=== PATIENT | female | born 1940 | race Caucasian/White ===

== ENCOUNTER → 2017-12-14 11:37 | Outpatient (CLI) | payer MEDICARE, BC, SELFPAY ==
--- NOTE | 2017-12-14 09:30 | BRBX_PTH ---
PATIENT: PATRICK LUNA LOC: [facility] U#:[id number] AGE/SX: 85/F ROOM: RE12/14/[address]: Stefani Delgadillo PA-C : 1940 BED: DIS: SPEC #: [id number] RECD: 12/14/17 11:29 STATUS: KULWINDER DAMON #: [id number] JACEY: 12/14/17 09:[address]: Stefani Delgadillo DEPT: SURGICAL PATHOLOGY RECD BY: Amilcar Boyce ENTERED: 12/14/17 12:40 SP TYPE: BREAST BX OTHR DR: Dr. Fidel Myers MD Tissues: Left breast, NOS Procedures: Surgery Specimen Level IV HEADER OPERATION: Left breast aspiration PRE-OP DIAGNOSIS: Left breast seroma TISSUE SUBMITTED: Left breast tissue MICROSCOPIC DIAGNOSIS Left breast tissue, biopsy: Minute fragment of adipose tissue and blood clots mixed with acute inflammatory cells, clinically seroma. Negative for malignancy. SJ:molly 12/15/17 MICROSCOPIC DESCRIPTION Slides are reviewed. GROSS DESCRIPTION Received in fixative is one container labeled with the patient's name and designated left breast. The specimen consists of two pieces of olivera-pink soft tissue that in aggregate measure 1.2 x 1 x 0.2 cm. The specimen is totally submitted in one cassette. / NATALYA:molly 12/14/17 TC:5 CPT: 58193
--- NOTE | 2017-12-14 09:30 | FLU_PTH ---
PATIENT: PATRICK LUNA LOC: [facility] U#:[id number] AGE/SX: 85/F ROOM: RE12/14/[address]: Stefani Delgadillo PA-C : 1940 BED: DIS: SPEC #: [id number] RECD: 12/14/17 12:39 STATUS: KULWINDER DAMON #: [id number] JACEY: 12/14/17 09:[address]: Stefani Delgadillo DEPT: CYTOLOGY RECD BY: Amilcar Boyce ENTERED: 12/14/17 12:39 SP TYPE: Fluid OTHR DR: Dr. Fidel Myers MD Tissues: Left breast, NOS Procedures: Pap Stain (control) Special Stain Group II Surgery Specimen Level IV Cell Block Cytospin Fluid HEADER OPERATION: Left breast seroma PRE-OP DIAGNOSIS: Left breast seroma TISSUE SUBMITTED: Left breast seroma aspiration for cytology DIAGNOSIS CYTOLOGY Left breast, seroma aspiration (cytospin and cell block): Negative for malignant cells. See cytology study and comment. SJ:rg 12/15/17 COMMENT Please correlate with corresponding surgical specimen [id number]. CYTOLOGY STUDY Slides are reviewed. The specimen is bloody and consists of numerous neutrophils. CYTOLOGY GROSS Received is 6 ml of red cloudy fluid labeled with the patient's name and and designated per the requisition as left breast seroma aspiration. Submitted for cytology preparation including cell block. / RY:crys 12/14/17 TC:5 CPT: 20296, 23459
== END ==
PROVIDERS: Family Provider Family Medicine; PCP Family Medicine; Visit Provider Physician Assistant
DX: N64.89 Other specified disorders of breast (principal)
CPT/HCPCS: 88108; 88305; 88313

== ENCOUNTER 2018-03-25 05:38 | Day surgery (SDC) | payer MEDICARE, BC, SELFPAY ==
[2018-03-25 06:14] VITALS: BP 134/86; PULSE 78; RESP 16; O2SAT 98
--- NOTE | 2018-03-25 06:30 | COLBX_PTH ---
PATIENT: PATRICK LUNA LOC: [facility] U#:[id number] AGE/SX: 77/F ROOM: RE03/25/[address]: Dr. Robby Stewart MD : 1940 BED: DIS: 03/25/2018 SPEC #: [id number] RECD: 03/25/18 09:20 STATUS: KULWINDER DAMON #: [id number] JACEY: 03/25/18 06:[address]: Robby Stewart DEPT: SURGICAL PATHOLOGY RECD BY: Braxton Gonzales ENTERED: 03/25/18 10:09 SP TYPE: COLON BX OT DR: Dr. Fidel Myers MD Tissues: COLON BIOPSY Procedures: Trichrome (control) Special Stain Group II Surgery Specimen Level IV HEADER OPERATION: Colonoscopy PRE-OP DIAGNOSIS: Diarrhea TISSUE SUBMITTED: Random colonic biopsy MICROSCOPIC DIAGNOSIS Colon, random biopsy: Suggestive of collagenous colitis. AM:molly 03/26/18 COMMENT Trichrome stain with matched control reveals a focally thickened basal plate. MICROSCOPIC DESCRIPTION Slides are reviewed. GROSS DESCRIPTION Received in fixative is one container labeled with the patient's name and designated random colon biopsy. The specimen consists of multiple irregular fragments of light olivera soft tissue that in aggregate measure 1 x 0.5 x 0.1 cm. The specimen is totally submitted in one cassette. / AM:molly 03/25/18 TC:3 CPT: 90364, 41655
[2018-03-25 06:55] VITALS: BP 108/44; BP 121/59; BP 134/86; BP 166/79; BP 168/148; BP 83/58; BP 97/82; PULSE 72; RESP 14; TEMP 35.9; O2SAT 100; O2SAT 92; O2SAT 93; O2SAT 94; O2SAT 96
--- NOTE | 2018-03-25 06:55 | PCM.OPRPT ---
Problem List (1) Diarrhea Status: Acute Qualifiers: Report of Operation Date of Procedure: 03/25/18 Pre-Operative Diagnosis: Intractable diarrhea Post-Operative Diagnosis: Severe pancolonic diverticulosis with extensive diverticulosis of the descending and sigmoid colon Surgery/Procedure Performed:: Colonoscopy with random cold forcep biopsies Description of Surgical Findings:: Timeout informed consent was obtained. 77-year-old female was taken to the endoscopy suite. She was placed in the left lateral decubitus position. Throughout the procedure in aliquots received total 100 mg Demerol and 3 mg of Versed is intravenous sedation. Digital rectal exam performed. Slightly tight anal tone. Moderate hemorrhoidal changes. No mass lesions. Flexible colonoscope inserted the rectum advanced through a somewhat tortuous sigmoid colon. There was a very severe extensive diverticulosis of the sigmoid and descending colon. The scope could then be advanced in the transverse colon. Transabdominal pressure was required to get scope to go to the hepatic flexure. The patient was then placed supine and the scope then nicely advanced to the cecum. The cecum ileocecal valve area was nicely achieved. Bowel prep was quite good. The scope was carefully withdrawn from the cecum ascending colon transverse colon descending colon and sigmoid. Random cold forcep colonic biopsies were obtained. There is extensive diverticulosis even over on the right side of the colon and very very severe diverticulosis of the descending and sigmoid colon. I did not see any evidence of acute inflammation. The scope was retroflexed within the rectum anorectal verge inspected some mild hemorrhoidal changes. No mass lesions. Excess fluid and air was aspirated free the procedure was treated with patient tolerating it well. Impression Severe pancolonic diverticulosis with very severe diverticular disease of the descending and sigmoid colon. No evidence for acute inflammation currently. Random colonic biopsies pending. Next screening colonoscopy recommended in 10 years as the previous examination had been 2010. The patient will be notified of biopsy results as they become available. Cc: Dr. Fidel Myers and Dr.Lapman Floridalma Stewart M.D., F.A.C.S. Type of Anesthesia:: IV Sedation
[2018-03-25 07:00] VITALS: BP 134/86; BP 90/44; PULSE 67; RESP 14; O2SAT 92
[2018-03-25 07:05] VITALS: BP 119/57; BP 134/86; PULSE 83; RESP 14; O2SAT 96
[2018-03-25 07:07] VITALS: BP 102/48; BP 134/86; PULSE 71; RESP 14; TEMP 35.8; O2SAT 93
[2018-03-25 07:32] VITALS: BP 115/58; BP 134/86; PULSE 64; RESP 18; O2SAT 95
== END 2018-03-25 07:42 | disposition home or self-care (01) ==
LOC: EN 05:38 → AC 05:41
PROVIDERS: Family Provider Family Medicine; PCP Family Medicine; Visit Provider Surgery
PROC: 0DJD8ZZ Inspection of Lower Intestinal Tract, Via Natural or Artificial Opening Endoscopic (ICD-10-PCS; CPT 45378; principal; 2018-03-25 06:25)
DX: K52.831 Collagenous colitis (principal); K57.30 Diverticulosis of large intestine without perforation or abscess without bleeding; K56.2 Volvulus; K64.9 Unspecified hemorrhoids; I10 Essential (primary) hypertension; E78.5 Hyperlipidemia, unspecified; Z79.82 Long term (current) use of aspirin; Z79.899 Other long term (current) drug therapy; Z87.891 Personal history of nicotine dependence
CPT/HCPCS: 45380; 88305; 88313; 99152; 99153; J7120

== ENCOUNTER 2020-08-24 12:52 | Outpatient (RCR) | payer MEDICARE, BC, SELFPAY ==
[2018-03-18 09:19] VITALS: BMI 30.9
== END 2020-08-24 23:59 ==
LOC: IMMUN 12:52
PROVIDERS: PCP Family Medicine; Visit Provider Family Medicine
DX: Z23 Encounter for immunization (principal)
CPT/HCPCS: 0011A; 0012A; 91301

== ENCOUNTER 2023-12-08 16:19 | Observation (INO) | payer MEDICARE, BC, SELFPAY ==
[2023-12-08] VITALS (8 sets, daily range): BP systolic 139–212; BP diastolic 69–113; PULSE 73–91; RESP 12–18; TEMP 36.1–36.9; O2SAT 96–99; BMI 27.9
[2023-12-08 17:09] LABS: Absolute Lymphocyte Count 2.28 X10^3/uL (0.83-4.51); Absolute Neutrophil Count 4.1 X10^3/uL (2.0-7.7); Basophil# 0.07 X10^3/uL; Eosinophil# 0.23 X10^3/uL; Eosinophils% 3.2 % (0-5); Hematocrit 42.7 % (37-47); Hemoglobin 13.7 g/dL (12.0-15.0); Lymphocyte # 2.28 X10^3/ul (0.83-4.51); Lymphocyte % 31.5 % (19-41); Mean Corp Hgb Conc 32.1 g/dL (32-36); Mean Corpuscular Hgb 29.2 pg (27.0-32.0); Mean Platelet Vol. 9.4 fl (6.2-12.0); Monocyte# 0.53 X10^3/uL; Monocyte% 7.3 % (0-10); NRBC Flagged by Analyzer 0 % (0-5); Neutrophil # 4.08 X10^3/uL (2.7-7.7); Neutrophil % 56.3 % (47-70); Platelet Count 239 K/mm3 (150-450); RBC Distribution Width CV 13.2 % (11.6-14.6); RBC Distribution Width SD 43.3 fl (35.1-43.9); Red Blood Count 4.69 M/mm3 (4.2-5.4); White Blood Count 7.2 K/mm3 (4.4-11.0)
--- NOTE | 2023-12-08 17:10 | EDS_ITS ---
HPI History of Present Illness Chief Complaint: Palpitations Informant: patient and spouse/S.O. Onset/Context/Timing Onset: Weeks Activity at onset: gradual Timing: Continuous Narrative Narrative: 83-year-old female no cardiac history. History of prior breast cancer and hypertension. She has had palpitations continuously for a week. No chest pain. No shortness of breath. No leg swelling. She has felt more tired. She was seen today in her primary care physician's office and referred to the emergency department. Prior Similar Symptoms: No Recent Illness/Hospitalization: No PE Risk Factors: Negative for Recent Travel/Surgery, Recent Immobilization, Prior DVT or PE, Cancer or OCP + Smoking + >/=35 TAD Risk Factors: Negative for Marfan's Syndrome [facility] Medical History Diarrhea Breast cancer (~2016) Hyperlipidemia HTN (hypertension) Home Medications ?Medication ?Instructions ?Recorded ?Last Taken ?Type aspirin 81 mg chewable tablet 81 mg PO DAILY@0800 05/12/17 04/28/17 History calcium carbonate 500 mg-vitamin 1 ea PO DAILY 05/12/17 Unknown History D3 10 mcg (400 unit) chewable tablet losartan 100 mg tablet 100 mg PO DAILY 05/12/17 05/18/17 08:00 History multivitamin 1 ea PO DAILY 05/12/17 Unknown History pravastatin 20 mg tablet 20 mg PO QHS 05/12/17 Unknown History anastrozole 1 mg tablet (Arimidex) 1 mg PO ONCE 07/13/17 Unknown History budesonide 9 mg tablet,delayed and 9 mg PO DAILY collagenous colitis 03/30/18 Unknown Rx extended release #60 ea loperamide 2 mg tablet 2 mg PO Q1-4H PRN loose stool #30 03/30/18 Unknown Rx (Anti-Diarrheal (loperamide)) tabs balsalazide 750 mg capsule 2,250 mg (3 x 750 mg) PO TID #90 04/06/18 Unknown Rx caps Allergy/AdvReac Type Severity Reaction Status Date / Time MIL Inhibitors AdvReac cough Verified 12/08/23 16:21 adhesive tape (paper tape) AdvReac Other Verified 12/08/23 16:21 Surgical History History of lumpectomy of left breast (~2016) History of left breast biopsy H/O: hysterectomy History of laparoscopic cholecystectomy History of right breast biopsy History of colonoscopy (~2010) Social History Smoking Status: Former smoker ROS ROS ED ROS Narrative Palpitations. Fatigue. No chest pain. Review of Systems ROS Unobtainable: Denies due to encephalopathy Constitutional Constitutional ED: Denies chills or fever(s) Eyes Eyes: Reports none ENT ENT ED: Denies ear pain Cardiovascular Cardiovascular: Reports palpitations; Denies as per HPI or chest pain Respiratory/Chest Respiratory/Chest: Denies cough or dyspnea Gastrointestinal Gastrointestinal: Denies abdominal pain, constipation, diarrhea or melena Genitourinary Genitourinary ED: Denies dysuria or hematuria Musculoskeletal Musculoskeletal: Denies arthralgias or back pain Integumentary Denies abscess or Abrasions Neurologic Neurologic: Denies headache(s) or paresthesias Psychiatric Psychiatric: Denies anxiety or depression Endocrine Endocrinology: Denies cold intolerance, heat intolerance or polydipsia Hematologic/Lymphatic Hematologic/Lymphatic: Denies easy bleeding or easy bruising Allergic/Immunologic Allergic/Immunologic ED: Denies mouth swelling, tongue swelling or urticaria EXAM Physical Exam Narrative Exam Narrative: 83-year-old female no acute distress vital signs stable blood pressure is elevated to 06/26/2013. Patient has intermittent A-fib on the monitor heart rate between 90 and 120. Sugars sinus in A-fib back to sinus. H EENT exam unremarkable. Neck nontender. Lungs clear to auscultation bilaterally. Heart irregularly irregular and intermittent sinus. No murmur. Abdomen soft nontender. Moving all 4 extremities. Nontender no edema. Normal flag football coach strength. Normal dorsi plantarflexion. Patient is awake and alert. No focal motor deficits. Const Vital Signs: 12/08/23 16:19 12/08/23 16:45 12/08/23 16:45 Temperature 97 F L Temperature Source Temporal Pulse Rate 90 Respiratory Rate 18 Respiratory Effort Normal Respiratory Pattern Normal Blood Pressure 212/113 H Blood Pressure Mean 146 Pulse Ox 99 Oxygen Delivery Method Room Air Room Air 12/08/23 18:19 Temperature Temperature Source Pulse Rate 91 Respiratory Rate 18 Respiratory Effort Respiratory Pattern Blood Pressure 160/89 H Blood Pressure Mean 112 Pulse Ox 96 Oxygen Delivery Method Room Air Positive well nourished and well developed; Negative for obese, cachectic, contractures or unkempt General Appearance ED: well developed and NAD; Negative for unkempt, cachectic, contractures or pallor Nutritional Appearance: Negative for cachectic or obese HEENT Reports moist mucous membranes normocephalic and atraumatic; Negative for trauma or tenderness Eyes PERRL and EOMs intact bilaterally General Eye ED: Negative for pale conjunctiva or scleral icterus Neck no lymphadenopathy, supple and no JVD General: Negative for tenderness Chest Wall inspection of chest normal and palpation of chest normal Chest: Negative for tenderness Resp normal respiratory effort and clear to auscultation bilaterally Effort and Inspection: Negative for respiratory distress Auscultation: Negative for rales, rhonchi, wheezes or diminished lung sounds Cardio Rhythm: abnormal rhythm irregularly irregular Peripheral Pulses: pulses 2+ throughout GI normal to inspection, nondistended, normoactive bowel sounds, soft to palpation, non-tender, non-distended and no masses Back/Spine no CVA tenderness and no thoracic nor lumbar tenderness Extremity normal to inspection General Extremety ED: Negative for edema or tenderness General Extremity: Negative for edema Neuro oriented x3 and CN's II-XII intact bilaterally Sensorium / Orientation: awake, alert, oriented to person, oriented to place and oriented to time; Negative for confused, lethargic or stuporous Motor Exam: strength 5/5 throughout Psych mental status grossly normal Appearance: Negative for unkempt Mood & Affect: Negative for depressed, anxious or tearful Skin no rashes or lesions noted and no wounds General Skin Exam: Negative for jaundice or pallor Rashes: No rashes noted Trauma: Negative for abrasion, laceration or puncture MDM MDM MDM Narrative Medical decision making narrative: 83-year-old female with intermittent A-fib. New onset. Cardiac workup. Repeat exam at 6 PM patient doing well. Typically now she is more regular in a sinus rhythm but occasionally will go back into A-fib. I will speak to hospitalist about admission. I do not think she needs any medications at this time. History & Record Review Discussion w/independent historian: Patient and Family Lab Data Attestation: I reviewed the patient's lab results. Lab results narrative: CBC normal. White count of 7.2. H&H of 13 and 42. Platelets 239. Electrolytes normal gap 6. BUN of 20 creatinine 1.21. Glucose 135. Troponin 8. TSH 3.3. Labs: Laboratory Results - last 24 hr 12/08/23 16:54 WBC 7.2 RBC 4.69 Hgb 13.7 Hct 42.7 MCV 91.0 MCH 29.2 MCHC 32.1 RDW Std Deviation 43.3 RDW Coeff of Sharifa 13.2 Plt Count 239 MPV 9.4 Immature Gran % (Auto) 0.700 Neut % (Auto) 56.3 Lymph % (Auto) 31.5 [place] % (Auto) 7.3 Eos % (Auto) 3.2 Baso % (Auto) 1.0 Absolute Neuts (auto) 4.1 Absolute Lymphs (auto) 2.28 Nucleated RBC % 0 Sodium 138 Potassium 3.9 Chloride 107 Carbon Dioxide 25.0 Anion Gap 6 BUN 20 H Creatinine 1.21 H Estim Creat Clear Calc 34.06 Est GFR (MDRD) Af Amer 54 L Est GFR (MDRD) Non-Af 45 L BUN/Creatinine Ratio 16.5 Glucose 135 H Calcium 9.6 Troponin I High Sens 8 TSH 3.33 Radiography Chest X-Ray - ED: 1 View, Read by ED Physician, Read by Radiologist, Heart, Lungs, Mediastinum, Bony Structures, No Acute Disease and Chronic Changes Diagnostic Testing: Clinical Impression(s) from Imaging Studies Chest X-Ray 12/08/23 17:10 IMPRESSION: No acute radiographic abnormalities. Electronically Signed: Emanuel Liu MD at 17:39 EDT , Chest x-ray, portable, single view interpreted by myself and radiologist shows no acute abnormality. Normal cardiac silhouette. Normal lung [place]. Rhythm Strip Rhythm Strip: A-fib Rate: 103 EKG Initial EKG: Attestation: I personally reviewed and interpreted this EKG as follows: Interpretation: No Acute Injury Pattern and Atrial Fibrillation Comments: Patient is EKG showing paroxysmal A-fib shows sinus rhythm then a run of A-fib RVR then sinus rhythm. No acute signs of CT or ischemia. Discharge Plan Dx/Rx/DC Orders Clinical Impression: Atrial fibrillation, new onset, History of hypertension, History of hypothyroidism Disposition Disposition: Acute Care Hospital [facility]
--- NOTE | 2023-12-08 17:10 | RAD_ITS ---
INDICATION: chest pain EXAMINATION/TECHNIQUE: X-RAY - XR Chest 1 View COMPARISON: None. FINDINGS: The lungs are clear. Tortuous and calcified thoracic aorta. The heart is mildly enlarged. No pleural effusion or pneumothorax. Degenerative changes of the thoracic spine. RAD/Chest 1 View (Portable) IMPRESSION: No acute radiographic abnormalities. Electronically Signed: Emanuel Liu MD at 17:39 EDT ,
[2023-12-08 17:45] LABS: Anion Gap 6 (5-15); BUN 20 mg/dL (7-18); BUN/Creat Ratio 16.5 RATIO (10-20); Calcium,Total 9.6 mg/dL (8.5-10.1); Chloride 107 mmol/L (98-107); Creatinine, Serum 1.21 mg/dL (0.55-1.02); EST Glomerular Filtration Rate 45 mL/min (>60); Est Glom Filt Rate - Afr Amer 54 mL/min (>60); Estimated Creatinine Clearance 34.06 ml/min; Glucose 135 mg/dL (74-106); Potassium 3.9 mmol/L (3.5-5.1); Sodium Level 138 mmol/L (136-145); Thyroid Stim Hormone (TSH) 3.33 uIU/mL (0.358-3.74); Troponin-I HS 8 pg/mL (3.0-54.0)
--- NOTE | 2023-12-08 18:41 | HP.PCM.HOS_ITS ---
HPI - General General Date of Admission: 12/08/23 Date of Service: 12/08/23 Chief Complaint: Fatigue, malaise, sensation palpitations. 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 Workup in the ED included T97, heart rate 90, BP initially 212/113, respiratory rate 18, 99% on room air with most recent repeat vital signs heart rate 91, BP 160/89, respiratory rate 16, 96% on room air, CBC with WBC 7.2, hemoglobin 13.7, platelets 239 without marked shift, BMP with BUN/creatinine 20/1.21, GFR 45, glucose 135, troponin 8, TSH 3.33, chest x-ray with no acute cardiopulmonary findings, EKG with sinus tachycardia however repeat EKGs and telemetry while in the ED did note patient intermittently going into atrial fibrillation although rate was not significantly elevated. Patient was administered no medications in the ED. [facility] Medical History CKD (chronic kidney disease), stage III History of breast cancer Hypothyroidism Hyperlipidemia HTN (hypertension) Home Medications ?Medication ?Instructions ?Recorded ?Last Taken ?Type aspirin 81 mg chewable tablet 81 mg PO DAILY@0800 05/12/17 04/28/17 History losartan 100 mg tablet 100 mg PO DAILY 05/12/17 05/18/17 08:00 History multivitamin 1 ea PO DAILY 05/12/17 Unknown History pravastatin 20 mg tablet 20 mg PO QHS 05/12/17 Unknown History anastrozole 1 mg tablet (Arimidex) 1 mg PO ONCE 07/13/17 Unknown History calcium carbonate 600 mg-vitamin 1 tab PO DAILY 12/08/23 Unknown History D3 5 mcg (200 unit) tablet (Calcium 600 + D(3)) levothyroxine 50 mcg tablet 50 mcg PO DAILY 12/08/23 Unknown History naproxen 250 mg tablet 250 mg PO DAILY 12/08/23 Unknown History Allergy/AdvReac Type Severity Reaction Status Date / Time MIL Inhibitors AdvReac cough Verified 12/08/23 16:21 adhesive tape (paper tape) AdvReac Other Verified 12/08/23 16:21 Family History Mother Hypertension Father COPD (chronic obstructive pulmonary disease) Lung cancer Surgical History History of lumpectomy of left breast (~2016) History of left breast biopsy H/O: hysterectomy History of laparoscopic cholecystectomy History of right breast biopsy History of colonoscopy (~2010) Social History (Updated 12/08/23 @ 18:[address] Lilly Petty MD) household members: none Smoking Status: Former smoker how long ago did patient quit smoking: Quit ~ 40 yrs prior, smoked 1 ppd age 25 until quit. alcohol intake: never substance use type: does not use ROS ROS Narrative Admission Review of Systems: CONSTITUTIONAL: No weight loss, fever, chills, + weakness or fatigue. HEENT: Eyes: No visual loss, blurred vision, double vision or yellow sclerae. Ears, Nose, Throat: No hearing loss, sneezing, congestion, runny nose or sore throat. SKIN: No rash or itching, lesions, wounds. CARDIOVASCULAR: + Palpitations, racing heart. No chest pain, chest pressure or chest discomfort, edema, orthopnea, syncopal events. RESPIRATORY: No shortness of breath, cough or sputum, wheezing, hemoptysis. GASTROINTESTINAL: No anorexia, nausea, vomiting or diarrhea, abdominal pain, melena, BRBPR. GENITOURINARY: + Sensation increased urinary frequency. No dysuria, urgency or retention. NEUROLOGICAL: No headache, dizziness, syncope, paralysis, ataxia, numbness or tingling in the extremities, focal weakness, change in bowel or bladder control, seizure. MUSCULOSKELETAL: + muscle, back pain, joint pain or stiffness. HEMATOLOGIC: No anemia. Easy bleeding/bruising. LYMPHATICS: No enlarged nodes. No history of splenectomy. PSYCHIATRIC: No history of depression or anxiety. ENDOCRINOLOGIC: No reports of sweating, cold or heat intolerance. No polyuria or polydipsia. ALLERGIES: No history of asthma, hives, eczema or rhinitis. Vital Signs Vital Signs Vital Signs: 12/08/23 16:19 12/08/23 16:45 12/08/23 16:45 Temperature 97 F L Temperature Source Temporal Pulse Rate 90 Respiratory Rate 18 Respiratory Effort Normal Respiratory Pattern Normal Blood Pressure 212/113 H Blood Pressure Mean 146 Pulse Ox 99 Oxygen Delivery Method Room Air Room Air 12/08/23 17:30 12/08/23 18:19 Temperature 98.4 F Temperature Source Pulse Rate 88 91 Respiratory Rate 16 18 Respiratory Effort Respiratory Pattern Blood Pressure 155/88 H 160/89 H Blood Pressure Mean 110 112 Pulse Ox 96 96 Oxygen Delivery Method Room Air Weight Weight: 162 lb 11.218 oz Body Mass Index (BMI) 27.9 Physical Exam Narrative Physical Examination: General: Awake, alert, oriented x 3 and cooperative, seated upright in the ED bed, no current symptoms, on monitor currently in sinus rhythm. Skin: Normal color, normal turgor, no icterus, no cyanosis except occasional staged ecchymoses. HEENT: AT/NC, EOMI, PERRLA, MMM, no carotid bruits or JVD noted. Lungs: Mildly diminished, greater bases, appropriate effort, no rales, ronchi or wheezing. Heart: Currently regular rate and rhythm; no gallop, rub audible. Abdomen: Soft, overweight, NTTP, ND, mildly hyperactive BS, no appreciated HSM. Extremities: No cyanosis, clubbing, or edema. Neurological: Patient awake, alert, oriented as noted, cognitive function intact; pupils equally reactive to light and accommodation, cranial nerves grossly normal, moving all 4 extremities, no focal deficits, strength mildly globally decreased. Psychiatric: Affect appears fatigued otherwise normal, no acute evidence of depressive or anxiety feelings. Results Lab / Micro Data 12/08/23 16:54 12/08/23 16:54 Labs: Laboratory Results - last 24 hr 12/08/23 16:54: WBC 7.2, RBC 4.69, Hgb 13.7, Hct 42.7, MCV 91.0, MCH 29.2, MCHC 32.1, RDW Std Deviation 43.3, RDW Coeff of Sharifa 13.2, Plt Count 239, MPV 9.4, Immature Gran % (Auto) 0.700, Neut % (Auto) 56.3, Lymph % (Auto) 31.5, [place] % (Auto) 7.3, Eos % (Auto) 3.2, Baso % (Auto) 1.0, Absolute Neuts (auto) 4.1, Absolute Lymphs (auto) 2.28, Nucleated RBC % 0, Sodium 138, Potassium 3.9, Chloride 107, Carbon Dioxide 25.0, Anion Gap 6, BUN 20 H, Creatinine 1.21 H, Estim Creat Clear Calc 34.06, Est GFR (MDRD) Af Amer 54 L, Est GFR (MDRD) Non-Af 45 L, BUN/Creatinine Ratio 16.5, Glucose 135 H, Calcium 9.6, Troponin I High Sens 8, TSH 3.33 Rhythm Strip Rhythm Strip: A-fib Rate: 103 Imaging Radiology Impression Chest X-Ray 12/08/23 17:10 IMPRESSION: No acute radiographic abnormalities. 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 #1. Symptomatic Paroxsymal atrial fibrillation: Patient with intermittent atrial fibrillation noted in the ED on telemetry monitoring. Will admit to PCU, maintain on telemetry, obtain cardiac enzyme serial set, obtain magnesium level, obtain ECHO, TSH level in the ED 3.33 however will obtain free T4 and T3 is recently started levothyroxine. Will initiate low-dose beta-luciana therapy and may further adjust or alter as needed pending response. Will initiate Eliquis therapy given stroke risk as discussed with patient and family. #2. Hypertension: Continue home regimen including losartan, adding beta-luciana low-dose as noted above with further adjustment pending response, PRN hydralazine. #3. Chronic Kidney Disease Stage III, unclear subtype: Admission BUN/Cr 20/1.21, GFR 45, baseline renal function not noted recently is the most noted function 05/08/2017 with creatinine 0.97 with GFR at that time 59, repeat BMP in AM. #4. Hypothyroidism: Continue home synthroid regimen, TSH 3.33 but given presentation symptoms we will also obtain free T4 and T3 to be cautious. #5. History of breast cancer: Patient with history of left-sided breast cancer of unclear type status postlumpectomy and radiation therapy x 1, considered in remission, will continue anastrozole regimen, encourage continued outpatient follow-up as previously arranged with oncology. #6. Hyperlipidemia: We will continue patient on statin therapy. #7. DVT prophylaxis: Initiating Eliquis therapy as noted. #8. CODE status: Patient ANISHA is her son and daughter and living will is currently in place. Discussed CODE status at length including difference between FULL code, DNR-CCA and DNR-CC status. Following discussions about the differences in these status, requested DNR-CCA, no intubation status. Advanced Care Planning Face to Face Time: 16 minutes. Charges/Coding Visit Charges Inpatient E&M: 85151 Init Hosp L2 Procedures Hospitalists Procedures: 56796 Advncd Care Plan 30 Min
--- NOTE | 2023-12-08 20:40 | ECHOD_ITS ---
Reason For Study: AFIB/FLUTTER Procedure This was a 2D Doppler, Color Flow transthoracic echocardiogram. The study was technically difficult. Due to arrhythmia. Exam performed portable in patient room. Left Ventricle Normal size and thickness. The left ventricular ejection fraction is 60 %. Normal diastology for age. Right Ventricle Normal right ventricle. Atria The left atrium is mildly enlarged. Normal right atrium. Mitral Valve Trivial mitral valve insufficiency. Tricuspid Valve Trivial tricuspid valve insufficiency. Normal pulmonary artery pressure. Aortic Valve Trisinus/trileaflet aortic valve. Mild (1+) aortic valve insufficiency. Pulmonic Valve The pulmonic valve is not well visualized. Great Vessels Normal sized aortic root. Pericardium/Pleural No pericardial effusion. MMode/2D Measurements & Calculations LVIDd: 4.1 cm IVSd: 0.86 cm Ao root diam: 3.0 cm LVIDs: 3.0 cm LVPWd: 0.89 cm RVDd: 2.7 cm FS: 26.9 % LAV(MOD-bp): 41.4 ml LVAd ap4: 18.0 cm2 SV(MOD-sp4): 27.0 ml LAV(MOD-bp) Indexed: 23.1 ml/m2 LVLd ap4: 6.6 cm LAV(MOD-sp2): 40.0 ml EDV(MOD-sp4): 41.3 ml LAV(MOD-sp4): 40.0 ml EDV(sp4-el): 41.6 ml LVAs ap4: 9.6 cm2 LVLs ap4: 5.9 cm ESV(MOD-sp4): 14.3 ml ESV(sp4-el): 13.3 ml EF(MOD-sp4): 65.5 % EF(sp4-el): 68.0 % SV(sp4-el): 28.3 ml LA A4 area: 15.3 cm2 LA dimension(2D): 4.2 cm RA A4 area: 11.7 cm2 Time Measurements MV dec time: 0.19 sec Doppler Measurements & Calculations MV E max hema: 75.6 cm/sec Lat Peak E' Hema: 7.8 cm/sec Med Peak E' Hema: 7.5 cm/sec MV A max hema: 100.3 cm/sec E/E' lat: 9.7 E/E' med: 10.1 MV E/A: 0.75 MV V2 max: 100.4 cm/sec Ao V2 max: 148.9 cm/sec AI max hema: 447.3 cm/sec MV max P.0 mmHg Ao max P.9 mmHg AI max P.1 mmHg MV V2 mean: 48.8 cm/sec Ao V2 mean: 88.1 cm/sec MV mean P.2 mmHg Ao mean P.7 mmHg AI dec slope: 281.6 cm/sec2 MV V2 VTI: 23.7 cm Ao V2 VTI: 27.2 cm AI P1/2t: 465.2 msec AV (velocity ratio): 0.76 LV V1 max: 96.9 cm/sec TR max hema: 259.7 cm/sec LV V1 max P.8 mmHg TR max P.0 mmHg LV V1 mean P.8 mmHg LV V1 mean: 61.3 cm/sec LV V1 VTI: 20.6 cm ECHO/Echo Complete Interpretation Summary The left ventricular ejection fraction is 60 %. The left atrium is mildly enlarged. Mild (1+) aortic valve insufficiency. Ordering Physician: Lilly Petty Referring Physician: Fidel Myers Performed By: Susan Wood RDCS, RVT
[2023-12-08] MEDS: Metoprolol Tartrate 25 MG Tablet 12.5 MG PO (22:44)
[2023-12-08] MEDS: APIXABAN 5 MG TABLET PO (22:45)
[2023-12-08 23:04] LABS: Bacteria 0 SEEN /hpf (None Seen); Mucous, Urine 0 SEEN /hpf (<or=2+)
[2023-12-08 23:07] LABS: Color, Urine Yellow (Yellow); Glucose, Dipstick Normal (Normal); Ketone-Dipstick Negative (Negative); Leukocyte Esterase-Dipstick 100 /ul (Negative); Nitrite-Dipstick Negative (Negative); Occult Blood-Urine 150 /ul (Negative); Protein-Dipstick Negative (Negative); Urine Bilirubin Dipstick Negative (Negative); Urine Clarity Clear (Clear); Urine Urobilinogen Normal (Normal)
[2023-12-08 23:14] LABS: Red Blood Cells-Urine 5-10 SEEN /hpf (0-5); Squamous Epithelial Cells - UA 0-5 SEEN /hpf (5-10); White Blood Cells 0-5 SEEN /hpf (0-5)
[2023-12-09 00:41] LABS: Troponin-I HS 81 pg/mL (3.0-54.0)
[2023-12-09 02:41] VITALS: BP 139/68; PULSE 70; RESP 16; TEMP 36.3; O2SAT 98
[2023-12-09 03:59] LABS: Absolute Lymphocyte Count 2.43 X10^3/uL (0.83-4.51); Absolute Neutrophil Count 3.9 X10^3/uL (2.0-7.7); Basophil# 0.06 X10^3/uL; Basophil% 0.8 % (0-1); Eosinophil# 0.22 X10^3/uL; Eosinophils% 3.1 % (0-5); Hematocrit 37.4 % (37-47); Lymphocyte # 2.43 X10^3/ul (0.83-4.51); Lymphocyte % 33.9 % (19-41); Mean Corp Hgb Conc 32.1 g/dL (32-36); Mean Corpuscular Hgb 29.3 pg (27.0-32.0); Mean Corpuscular Volume 91.4 fL (81-99); Mean Platelet Vol. 9.4 fl (6.2-12.0); Monocyte# 0.51 X10^3/uL; Monocyte% 7.1 % (0-10); NRBC Flagged by Analyzer 0 % (0-5); Neutrophil # 3.91 X10^3/uL (2.7-7.7); Neutrophil % 54.7 % (47-70); Platelet Count 196 K/mm3 (150-450); Red Blood Count 4.09 M/mm3 (4.2-5.4); White Blood Count 7.2 K/mm3 (4.4-11.0)
[2023-12-09 04:17] LABS: Troponin-I HS 75 pg/mL (3.0-54.0)
[2023-12-09] MEDS: Levothyroxine 50 MCG Tablet PO (05:34)
[2023-12-09 06:00] VITALS: BMI 27.4
[2023-12-09 06:19] LABS: ALB/GLOB Ratio 1.2 RATIO (0.9-2.4); AST(SGOT) 18 U/L (15-37); Alanine Aminotransfer ALT/SGPT 16 U/L (13-56); Albumin, Serum 3.5 g/dL (3.2-5.0); Alkaline Phosphatase 63 U/L (45-117); Anion Gap 6 (5-15); BUN 18 mg/dL (7-18); BUN/Creat Ratio 17.8 RATIO (10-20); Calcium,Total 8.8 mg/dL (8.5-10.1); Chloride 110 mmol/L (98-107); Creatinine, Serum 1.01 mg/dL (0.55-1.02); EST Glomerular Filtration Rate 55 mL/min (>60); Est Glom Filt Rate - Afr Amer 67 mL/min (>60); Estimated Creatinine Clearance 40.49 ml/min; Free T3 1.9 pg/mL (2.18-3.98); Globulin 2.9 g/dL (2.2-4.2); Glucose 101 mg/dL (74-106); Potassium 3.8 mmol/L (3.5-5.1); Protein, Total 6.4 g/dL (6.4-8.2); Sodium Level 141 mmol/L (136-145); T4 Free Direct 1.18 ng/dL (0.76-1.46)
[2023-12-09 08:41] VITALS: BP 134/63; PULSE 73; RESP 14; TEMP 36.6; O2SAT 97
[2023-12-09] MEDS: APIXABAN 5 MG TABLET PO (10:23)
[2023-12-09] MEDS: Losartan Potassium 100 MG Tablet PO (10:23)
[2023-12-09 10:24] VITALS: BP 138/68; PULSE 78
[2023-12-09] MEDS: Metoprolol Tartrate 25 MG Tablet 12.5 MG PO (10:24)
[2023-12-09] MEDS: 0.9% Saline Lock 10 ML Syringe IV (10:26)
[2023-12-09 14:41] VITALS: BP 136/74; PULSE 76; RESP 16; TEMP 36.8; O2SAT 99
--- NOTE | 2023-12-09 14:56 | DS.PCM_ITS ---
Providers Date of Admission: 12/08/23 Date of Discharge: 12/09/23 Primary Care Physician: Dr. Fidel Myers MD Reason For Visit: PAF Diagnosis Discharge Diagnosis (1) Atrial fibrillation, new onset: Status: Acute Code(s): I48.91 - Unspecified atrial fibrillation Medications at Discharge Home Medications aspirin 81 mg chewable tablet 81 mg PO DAILY@0800 heart health 05/12/17 losartan 100 mg tablet 100 mg PO DAILY blood pressure 05/12/17 multivitamin 1 ea PO DAILY vitamin 05/12/17 pravastatin 20 mg tablet 20 mg PO QHS cholesterol 05/12/17 calcium carbonate 600 mg-vitamin D3 5 mcg (200 unit) tablet (Calcium 600 + D(3)) 1 tab PO DAILY supplement 12/08/23 levothyroxine 50 mcg tablet 50 mcg PO DAILY thyroid 12/08/23 apixaban 5 mg tablet (Eliquis) 5 mg PO BID #60 tabs 12/09/23 metoprolol tartrate 25 mg tablet 12.5 mg (1/2 x 25 mg) PO BID #30 tabs 12/09/23 Hospital Course Operations None Procedures 2-D Echocardiogram Summary of Care Provided Minutes Spent on Discharge: 55 Hospital Course: Patient is an 83-year-old female with a past medical history as outlined was admitted through the ED on 12/08/2023 with a complaint of intermittent palpitations and fatigue and malaise. She denied any shortness of breath or chest pain. She had recently been placed on Synthroid for hypothyroidism and the dose was increased to 50 mcg daily recently also. On admission blood pressure was markedly elevated at 212/113. Labs were otherwise unremarkable. TSH was 3.33. Chest x-ray showed no acute cardiopulmonary process and EKG shows sinus tachycardia though subsequently she did go into intermittent A-fib. She was admitted and managed for new onset A-fib. She was placed on p.o. metoprolol as well as Eliquis. She had 2D echo which showed EF of 60%with mildly enlarged left atrium and mild aortic valve insufficiency. She remained rate controlled and her palpitations did not recur during admission. She remained stable and was discharge home on 12/09/2023. She was discharged on PO metoprolol and PO eliquis. She is to follow up with her PCP and was referred to cardiology to establish care for her afib. Patient seen and examined. She had no active complaints and felt well. She had an uneventful night. Review of systems is otherwise negative. Labs and vital reviewed. Home meds reviewed and reconciled. Physical Exam Const alert, oriented x3 and no apparent distress General Appearance: cooperative and comfortable Orientation / Consciousness: awake Exam Limitations: no limitations HEENT normocephalic, head/scalp atraumatic, hearing grossly normal bilaterally, moist oral mucous membranes and oropharynx normal Mouth: oral and palatal mucosa normal Eyes PERRL, EOMs intact bilaterally and conjunctivae normal Neck no lymphadenopathy and supple Resp normal respiratory effort, no retractions, no use of accessory muscles and clear to auscultation bilaterally Cardio S1 normal heart sound, S2 normal heart sound and no murmurs Cardio Narrative: afib, rate controlled. GI normal to inspection, nondistended, normoactive bowel sounds, soft to palpation, non-tender and non-distended Extremity normal to inspection, full ROM and no clubbing, cyanosis or edema Skin no rashes or lesions noted and no wounds Neuro oriented x3, CN's II-XII intact bilaterally, moves all extremities and no focal motor deficits Sensorium / Orientation: awake and alert Motor Exam: strength 5/5 throughout Psych affect normal Weight / BMI Weight Weight: 160 lb 0.889 oz Body Mass Index (BMI) 27.4 ABG / Lab / Microbiology Data 12/09/23 03:34 12/09/23 03:34 Laboratory: Laboratory Results - last 24 hr 12/08/23 16:54: WBC 7.2, RBC 4.69, Hgb 13.7, Hct 42.7, MCV 91.0, MCH 29.2, MCHC 32.1, RDW Std Deviation 43.3, RDW Coeff of Sharifa 13.2, Plt Count 239, MPV 9.4, Immature Gran % (Auto) 0.700, Neut % (Auto) 56.3, Lymph % (Auto) 31.5, [place] % (Auto) 7.3, Eos % (Auto) 3.2, Baso % (Auto) 1.0, Absolute Neuts (auto) 4.1, Absolute Lymphs (auto) 2.28, Nucleated RBC % 0, Sodium 138, Potassium 3.9, Chloride 107, Carbon Dioxide 25.0, Anion Gap 6, BUN 20 H, Creatinine 1.21 H, Estim Creat Clear Calc 34.06, Est GFR (MDRD) Af Amer 54 L, Est GFR (MDRD) Non-Af 45 L, BUN/Creatinine Ratio 16.5, Glucose 135 H, Calcium 9.6, Magnesium 2.0, Troponin I High Sens 8, TSH 3.33 12/08/23 22:55: Urine Color Yellow, Urine Clarity Clear, Urine pH 7.0, Ur Specific [place] 1.010, Urine Protein Negative, Urine Glucose (UA) Normal, Urine Ketones Negative, Urine Occult Blood 150 H, Urine Nitrite Negative, Urine Bilirubin Negative, Urine Urobilinogen Normal, Ur Leukocyte Esterase 100 H, Urine RBC 5-10 SEEN, Urine WBC 0-5 SEEN, Ur Squamous Epith Cells 0-5 SEEN, Urine Bacteria 0 SEEN, Urine Mucus 0 SEEN 12/08/23 23:40: Troponin I High Sens 81 H 12/09/23 03:34: WBC 7.2, RBC 4.09 L, Hgb 12.0, Hct 37.4, MCV 91.4, MCH 29.3, MCHC 32.1, RDW Std Deviation 42.0, RDW Coeff of Sharifa 13.0, Plt Count 196, MPV 9.4, Immature Gran % (Auto) 0.400, Neut % (Auto) 54.7, Lymph % (Auto) 33.9, [place] % (Auto) 7.1, Eos % (Auto) 3.1, Baso % (Auto) 0.8, Absolute Neuts (auto) 3.9, Absolute Lymphs (auto) 2.43, Nucleated RBC % 0, Sodium 141, Potassium 3.8, C hloride 110 H, Carbon Dioxide 25.0, Anion Gap 6, BUN 18, Creatinine 1.01, Estim Creat Clear Calc 40.49, Est GFR (MDRD) Af Amer 67, Est GFR (MDRD) Non-Af 55 L, BUN/Creatinine Ratio 17.8, Glucose 101, Calcium 8.8, Total Bilirubin 0.70, AST 18, ALT 16, Alkaline Phosphatase 63, Troponin I High Sens 75 H, Total Protein 6.4, Albumin 3.5, Globulin 2.9, Albumin/Globulin Ratio 1.2, Free T4 1.18, Free T3 pg/dL 1.9 L Radiography Diagnostic Testing: Radiology Impression Chest X-Ray 12/08/23 17:10 IMPRESSION: No acute radiographic abnormalities. Electronically Signed: Emanuel Liu MD at 17:39 EDT , Echocardiogram 12/08/23 20:40 Interpretation Summary The left ventricular ejection fraction is 60 %. The left atrium is mildly enlarged. Mild (1+) aortic valve insufficiency. Ordering Physician: Lilly Petty Referring Physician: Fidel Myers Performed By: Susan Wood RDCS, RVT D/C Instructions Discharge Diet: Low fat / Low cholesterol Discharge Activity: Return to Normal Activity Weight Bearing Status: Weight bearing as tolerated Call your doctor if you observe: Fever of 101 or Higher, Shortness of breath, Dizziness, Swelling in the ankles, Chest pain and Increased palpitations (irregular heartbeat) Meaningful Use Info Meaningful Use Meaningful Use Diagnoses (Choose all that apply): None applicable Ischemic Stroke Statin Dosing Therapy Reference: STATIN DOSE THERAPY REFERENCE: * Patients > 75 years receive moderate or high dose statin therapy. * Patients 75 years or YOUNGER should receive HIGH intensity statin dose unless contraindicated. You will be required to document reason for non-treatment if statin daily dose does not meet guidelines. HIGH DOSE STATIN THERAPY DAILY Atorvastatin > than or = to 40 mg Rosuvastatin > than or = to 20 mg Amlodipine + Atorvastatin > than or = to 2.5/40 mg Ezetimibe + Simvastatin 10/80 mg Simvastatin 80mg Discharge Plan Admission Admit Date/Time: 12/08/23 18:54 Primary Reason for Your Visit: atrial fibrillation Attending Provider: Nancy Pereyra Primary Care Provider: Fidel Myers Consulting Providers: Lilly Petty Instructions Patient Instructions: AFib Dc Discharge Orders/Prescriptions Prescriptions: New metoprolol tartrate 25 mg Tablet 12.5 mg PO BID Qty: 30 2RF Eliquis 5 mg Tablet 5 mg PO BID Qty: 60 2RF Continued multivitamin 1 EACH tablet 1 ea PO DAILY aspirin 81 MG tablet,chewable 81 mg PO DAILY@0800 pravastatin 20 MG tablet 20 mg PO QHS losartan 100 MG tablet 100 mg PO DAILY levothyroxine 50 mcg tablet 50 mcg PO DAILY calcium carbonate-vitamin D3 [Calcium 600 + D(3)] 600 mg-5 mcg (200 unit) tablet 1 tab PO DAILY Discontinued naproxen 250 mg tablet 250 mg PO DAILY Referrals / Follow Up: Musa Calderon MD [Med Staff - Active Staff] - Within 1 Month (see to establish care for afib) Fidel Myers MD [Primary Care Provider] - Within 2 Weeks Disposition Disposition (needs filled in before D/C Order can be placed): Home, Self Care Charges/Coding Visit Charges Inpatient E&M: 30740 Disch Hosp >30min
--- NOTE | 2023-12-09 15:37 | CASEMGMT ---
Patient has order for discharge. Patient discharging on Eliquis. FRANDY JEAN called pharmacy to verify copay. Cost is $547, FRANDY JEAN updated patient, Eliquis savings card provided to patient. Patient denies needs or help at discharge. Patient had no further questions or concerns.
--- NOTE | 2023-12-09 16:01 | CHAPLAIN ---
Type of Pastoral Visit _x__ Initial Visit ___ Follow-up Visit ___ On-call Visit ___ General Patient Visit ___ Spiritual Assessment ___ Family Conference ___ Bereavement ___ Rapid Response ___ Code Blue ___ Other (describe below) Pastoral Care Referral From _x__ Patient ___ Family ___ Nurse ___ Physician ___ Filter Screen Cleaner ___ Diesel Engine Mechanic ___ Other (describe below) Sacrament/Intervention _x__ Active listening ___ Anointing ___ Sabianism ___ Bereavement ___ Communion ___ Graciela exploration ___ ___ Life review _x__ Prayer ___ Reconciliation ___ Sacrament of Sick _x__ Supportive presence ___ Wedding ___ Other (describe below) Pastoral Comments the patient seemed delighted to have the visit and support of a cash applications manager; talk, listen, and prayer
[2023-12-09 16:30] VITALS: BP 139/74; PULSE 70; RESP 16; TEMP 36.2; O2SAT 97
== END 2023-12-09 16:45 | disposition home or self-care (01) ==
LOC: ED 18:08 → PCU 19:09
PROVIDERS: Admitting Provider Family Medicine; Emergency Provider Emergency Medicine; PCP Family Medicine; Visit Provider Student in an Organized Health Care Education/Training Program
DX: I48.0 Paroxysmal atrial fibrillation (principal); N18.30 Chronic kidney disease, stage 3 unspecified; Z87.891 Personal history of nicotine dependence; Z79.82 Long term (current) use of aspirin; E78.5 Hyperlipidemia, unspecified; I12.9 Hypertensive chronic kidney disease with stage 1 through stage 4 chronic kidney disease, or unspecified chronic kidney disease; E03.9 Hypothyroidism, unspecified; I08.3 Combined rheumatic disorders of mitral, aortic and tricuspid valves; Z79.899 Other long term (current) drug therapy; Z79.890 Hormone replacement therapy
CPT/HCPCS: 36415; 71045; 80048; 80053; 81001; 83735; 84439; 84443; 84481; 84484; 85025; 93005; 93306; 94668; 99221; 99284; A4216; G0378

== ENCOUNTER → 2024-01-08 | Outpatient (CLI) | payer MEDICARE, BC, SELFPAY ==
--- NOTE | 2024-01-08 17:15 | STRESSREP ---
Stress Test Report Pharmacologic myocardial perfusion stress test. 83-year-old lady with a history of chest pain Resting EKG demonstrates sinus rhythm with a rate of 65 bpm. Resting blood pressure is 138/72 mmHg. 0.4 mg of regadenoson was infused per usual protocol followed by rapid intravenous saline flush injection. Continuous EKG monitoring was performed. The maximum heart rate was 93 bpm which was 68% of max impacted heart rate the maximum workload was 1 metabolic equivalent. At rest there were no ST or T wave changes noted to suggest ischemia and at peak infusion nonspecific ST changes were noted which did not meet the criteria for ischemia. No clinical angina is noted. The final blood pressure was 140/70 mmHg. Myocardial perfusion protocol. 11.5 mCi of technetium 99m sestamibi was injected at rest. 0.4 mg of regadenoson was infused per usual protocol. At peak infusion 33.8 mCi of technetium 99m sestamibi was injected stress images were obtained stress and rest images were reconstructed and compared in the short axis vertical long and horizontal long axis. Gated images were also obtained. Perfusion SPECT analysis: Review of the stress images demonstrate normal uptake of tracer noted in all areas of the myocardium. The resting images similar demonstrated normal uptake of tracer noted in all areas of the myocardium. No areas of reversibility are noted to suggest ischemia and no previous infarct is noted. Gated SPECT analysis: The gated ejection fraction is 86%. Conclusion: Normal pharmacologic myocardial perfusion stress test. Preserved ejection fraction.
== END | disposition home or self-care (01) ==
LOC: CVS 06:05
PROVIDERS: PCP Family Medicine; Referring Provider Family Medicine; Visit Provider Family Medicine
DX: I48.91 Unspecified atrial fibrillation (principal); R07.89 Other chest pain; M54.2 Cervicalgia
CPT/HCPCS: 78452; 93017; A9500; A4216; J2785

== ENCOUNTER → 2024-05-04 | Outpatient (CLI) | payer MEDICARE, BC, SELFPAY ==
--- NOTE | 2024-05-04 15:22 | NEURO ---
NCS and/or EMG Patient Report Ordering Doctor: Fidel Myers DATE OF SERVICE: 05/04/24 Mayra presents with complaints of numbness in the 2nd-4th toes bilaterally for approximately 3 months. Electrodiagnostic findings: Right peroneal motor nerve demonstrates normal distal latency amplitude and conduction velocity. Right tibial motor response is within normal limits. Normal tibial and peroneal F?waves. Borderline prolonged H?reflex bilaterally. Sensory responses are normal. Needle EMG testing was performed in the right lower limb. All muscles tested showed no evidence of denervation with normal motor unit action potentials. Patient refused testing of the left lower limb. Diagnostic impression: This a normal electrodiagnostic study of the right lower limb. There is no electrodiagnostic evidence for peripheral neuropathy or lumbosacral radiculopathy. Multi Select Codes Neurology Neurology Interp Codes: 52886-63 Musc test done w/n test comp (interp) and 61690-70 Nrv cndj tst 5-6 studies (interp)
== END | disposition home or self-care (01) ==
LOC: PSN 08:26
PROVIDERS: PCP Family Medicine; Referring Provider Family Medicine; Visit Provider Family Medicine
DX: R20.2 Paresthesia of skin (principal)
CPT/HCPCS: 95886; 95909